=== PATIENT | female | born 1960 | race Caucasian/White ===

== ENCOUNTER 2019-09-12 12:46 | Emergency (ER) | payer SELFPAY ==
[~2019-09-12] VITALS: Ht 152.4 cm; Wt 67.7 kg
[2019-09-12 13:41] LABS: BASOPHILS # (AUTO) 0.16 x10^3/uL (0-0.1); BASOPHILS % (AUTO) 2 % (0-1); EOSINOPHILS % (AUTO) 6 % (1-7); LYMPHOCYTES # (AUTO) 2.16 x10^3/uL (1-3.4); LYMPHOCYTES % (AUTO) 32 % (22-44); MD NO; MEAN CORPUSCULAR HEMOGLOBIN 29.5 pg (27.0-34.8); MEAN CORPUSCULAR HGB CONC 32.9 g/dL (32.4-35.8); MEAN CORPUSCULAR VOLUME 89.6 fL (80-100); MEAN PLATELET VOLUME 8.6 fL (7.4-10.4); MONOCYTES # (AUTO) 0.55 x10^3/uL (0.2-0.8); MONOCYTES % (AUTO) 8 % (2-9); NEUTROPHILS # (AUTO) 3.56 x10^3/uL (1.8-6.8); NEUTROPHILS % (AUTO) 52 % (42-75); PLATELET COUNT 397 x10^3/uL (130-400); RED BLOOD COUNT 4.44 x10^6/uL (3.82-5.3); RED CELL DISTRIBUTION WIDTH 14.8 % (9.6-15.2)
[2019-09-12 13:47] LABS: ALBUMIN 3.5 g/dL (3.4-5.0); ANION GAP 6 mmol/L (5-15); CALCIUM 8.7 mg/dL (8.5-10.1); CHLORIDE 111 mmol/L (98-107)
[2019-09-12 13:51] LABS: TROPONIN I < 0.015 ng/mL (0.000-0.045)
--- NOTE | 2019-09-12 15:16 | NUR ---
REPORT RECEIVED FROM SANDRA SCHAFER. CARE ASSUMED. PT AWATING TROP DRAW AND RESULTS. PT RESTING COMFORTABLY ON GURNEY, DENIES NEEDS.
[2019-09-12] MEDS ORDERED: ALBUTEROL/IPRATROPIUM 2.5MG/0.5MG, 3 ML NPPB ONE (16:00)
[2019-09-12] MEDS ORDERED: ALBUTEROL/IPRATROPIUM 2.5MG/0.5MG, 3 ML ONE (16:02)
--- NOTE | 2019-09-12 16:21 | NUR ---
LAB AT BEDSIDE FOR TROP.
[2019-09-12 16:34] VITALS: BP 129/88
[2019-09-12 16:44] LABS: TROPONIN I < 0.015 ng/mL (0.000-0.045)
--- NOTE | 2019-09-12 17:10 | NUR ---
Patient/Caregiver given discharge instructions and they have confirmed that they understand the instructions. Patient ambulatory with steady gait.
== END 2019-09-12 17:12 | disposition home or self-care (01) ==
LOC: ED 13:34
DX: R07.89 Other chest pain (principal); R06.00 Dyspnea, unspecified; J45.909 Unspecified asthma, uncomplicated; Z87.891 Personal history of nicotine dependence
CPT/HCPCS: 36415; 71045; 80048; 82040; 83880; 84484; 85025; 85379; 93005; 94640; 99284

== ENCOUNTER 2020-01-21 11:23 | Emergency (ER) | payer SELFPAY ==
[~2020-01-21] VITALS: Ht 152.4 cm; Wt 73.0 kg
--- NOTE | 2020-01-21 11:40 | NUR ---
LATE ENTRY: PT AMBULATED BACK TO ROOM, RESP RATE INCREASED TO 24, SAT AT 96%, CHANGED TO GOWN, RESTING ON GURNEY, P/W/D, MAEx4. WCTM
[2020-01-21] MEDS ORDERED: albuterol HFA INH (11:56)
[2020-01-21 12:27] LABS: BASOPHILS # (AUTO) 0.07 x10^3/uL (0-0.1); BASOPHILS % (AUTO) 1 % (0-1); EOSINOPHILS # (AUTO) 0.61 x10^3/uL (0-0.4); EOSINOPHILS % (AUTO) 8 % (1-7); LYMPHOCYTES # (AUTO) 2.12 x10^3/uL (1-3.4); LYMPHOCYTES % (AUTO) 29 % (22-44); MD NO; MEAN CORPUSCULAR HEMOGLOBIN 29.5 pg (27.0-34.8); MEAN CORPUSCULAR HGB CONC 33.3 g/dL (32.4-35.8); MEAN CORPUSCULAR VOLUME 88.8 fL (80-100); MEAN PLATELET VOLUME 8.9 fL (7.4-10.4); MONOCYTES # (AUTO) 0.59 x10^3/uL (0.2-0.8); MONOCYTES % (AUTO) 8 % (2-9); NEUTROPHILS # (AUTO) 3.99 x10^3/uL (1.8-6.8); NEUTROPHILS % (AUTO) 54 % (42-75); PLATELET COUNT 344 x10^3/uL (130-400); RED BLOOD COUNT 4.64 x10^6/uL (3.82-5.3); RED CELL DISTRIBUTION WIDTH 13.5 % (9.6-15.2)
[2020-01-21] MEDS ORDERED: ALBUTEROL/IPRATROPIUM 2.5MG/0.5MG, 3 ML NPPB ONE ×2 (12:30→14:30)
[2020-01-21 12:40] LABS: ANION GAP 7 mmol/L (5-15); CALCIUM 9.4 mg/dL (8.5-10.1); CHLORIDE 109 mmol/L (98-107); CREATININE 0.88 mg/dL (0.55-1.02)
--- NOTE | 2020-01-21 12:40 | NUR ---
PT AMBULATED BACK TO BATHROOM WITH A SMOOTH AND STEADY GAIT, RESP WNL, CALL LIGHT ON LAP, RESTING ON GURNEY, P/W/D, MAEx4, FCS NO SOB NOTED. WCTM. WAITING FOR RADS AND LABS RESULTS AND NEB TX.
[2020-01-21] MEDS ORDERED: ALBUTEROL/IPRATROPIUM 2.5MG/0.5MG, 3 ML ONE ×2 (12:42→14:16)
[2020-01-21 12:44] LABS: TROPONIN I < 0.015 ng/mL (0.000-0.045)
--- NOTE | 2020-01-21 13:43 | NUR ---
PT RESTING ON GURNEY, NAD, CALL LIGHT ON LAP, RESP WNL, NEB FINISHED, O2 SAT AT 96, WHEEZING HEARD ON AUSCULTATIONS, VSS, WCTM. MOLLY GREEN AT FOR EVAL AND TO DISCUSS POC.
--- NOTE | 2020-01-21 14:18 | NUR ---
PT WALKED TO AND FROM RESTROOM, EVEN AND STEADY GAIT, NOW RESTING ON TERRENCE, Priyank4, FCS NO SOB NOTED, DENIES ADDITIONAL NEEDS AT THIS TIME, NAD, P/W/D. MEDICATED PER NOV, CALL LIGHT ON LAP, [facility]. WAITING FOR SECOND DUONEB TX.
[2020-01-21 14:24] VITALS: BP 147/74
--- NOTE | 2020-01-21 14:26 | NUR ---
liam tx admin by this rn. pt tolerated tx well with stated relief. papr worn throughout tx. pt remains in negative pressure room
== END 2020-01-21 15:16 | disposition home or self-care (01) ==
LOC: ED 14:30
DX: J45.909 Unspecified asthma, uncomplicated (principal); R05 Cough; R06.00 Dyspnea, unspecified; R07.89 Other chest pain; I21.9 Acute myocardial infarction, unspecified
CPT/HCPCS: 36415; 71045; 80048; 84484; 85025; 93005; 94640; 99285; J7512

== ENCOUNTER 2020-10-20 13:43 | Emergency (ER) | payer SELFPAY ==
[~2020-10-20] VITALS: Ht 152.4 cm; Wt 78.0 kg
[~2020-10-20 13:43] MED LIST: albuterol HFA INH
--- NOTE | 2020-10-20 14:15 | NUR ---
pt in bed. admin neb. vss no distress
[2020-10-20] MEDS ORDERED: ALBUTEROL/IPRATROPIUM 2.5MG/0.5MG, 3 ML ONE (14:17)
[2020-10-20] MEDS ORDERED: ALBUTEROL/IPRATROPIUM 2.5MG/0.5MG, 3 ML NPPB ONE (14:30)
[2020-10-20] MEDS ORDERED: ALBUTEROL-IPRATROPIUM MDI INH INH PRN (14:30)
[2020-10-20 14:45] VITALS: BP 126/64
--- NOTE | 2020-10-20 15:20 | NUR ---
pt walked out self with steady gait. vss. if s&s worsen return to the er
== END 2020-10-20 15:22 | disposition home or self-care (01) ==
LOC: ED 14:34
DX: J45.31 Mild persistent asthma with (acute) exacerbation (principal); Z91.19 Patient's noncompliance with other medical treatment and regimen; Z87.891 Personal history of nicotine dependence
CPT/HCPCS: 71045; 99283; J7512

== ENCOUNTER 2020-11-20 11:54 | Emergency (ER) | payer OTHER ==
[~2020-11-20] VITALS: Ht 152.4 cm; Wt 78.0 kg
[2020-11-20] MEDS ORDERED: ALBUTEROL/IPRATROPIUM 2.5MG/0.5MG, 3 ML NPPB ONE ×2 (12:30→14:30)
[2020-11-20] MEDS ORDERED: SODIUM CHLORIDE 0.9%, 500ML IVBOLUS ONE (12:30)
[2020-11-20] MEDS ORDERED: methylPREDNISolone SOD SUCC 125 MG/2 ML IV ONE (12:30)
[2020-11-20] MEDS ORDERED: ALBUTEROL/IPRATROPIUM 2.5MG/0.5MG, 3 ML ONE ×2 (12:40→14:21)
[2020-11-20] MEDS ORDERED: methylPREDNISolone SOD SUCC 125 MG/2 ML ONE (12:40)
[2020-11-20 12:44] LABS: BASOPHILS % (AUTO) 1 % (0-1); EOSINOPHILS % (AUTO) 10 % (1-7); LYMPHOCYTES % (AUTO) 30 % (22-44); MEAN CORPUSCULAR HEMOGLOBIN 30.4 pg (27.0-34.8); MEAN CORPUSCULAR HGB CONC 34.5 g/dL (32.4-35.8); MEAN PLATELET VOLUME 8.1 fL (7.4-10.4); MONOCYTES % (AUTO) 9 % (2-9); NEUTROPHILS % (AUTO) 50 % (42-75); PLATELET COUNT 433 x10^3/uL (130-400); RED BLOOD COUNT 4.57 x10^6/uL (3.82-5.3); RED CELL DISTRIBUTION WIDTH 13.6 % (9.6-15.2)
[2020-11-20 12:45] LABS: MD NO
[2020-11-20 12:57] LABS: ALBUMIN 3.5 g/dL (3.4-5.0); ANION GAP 6 mmol/L (5-15); CALCIUM 8.3 mg/dL (8.5-10.1); CHLORIDE 111 mmol/L (98-107); CREATININE 0.92 mg/dL (0.55-1.02)
[2020-11-20 15:22] VITALS: BP 131/75
== END 2020-11-20 15:24 | disposition home or self-care (01) ==
LOC: ED 11:56
DX: J45.40 Moderate persistent asthma, uncomplicated (principal); E11.9 Type 2 diabetes mellitus without complications; Z87.891 Personal history of nicotine dependence
CPT/HCPCS: 36415; 71045; 80048; 82040; 85025; 93005; 94640; 96360; 96361; 99285; J2930; J7040